=== PATIENT | male | born 1970 | race Two or more races ===

== ENCOUNTER → 2019-08-22 | Outpatient (CLI) | payer OTHER ==
[~2019-08-22] MED LIST: IRBE1TAB13 PO; NORT10CA PO
[2019-08-22 08:46] LABS: ALANINE AMINOTRANSFERASE 30 U/L (12-78); ALBUMIN 3.7 g/dL (3.4-5.0); ANION GAP 6 mmol/L (5-15); CALCIUM 8.6 mg/dL (8.5-10.1); CHLORIDE 105 mmol/L (98-107); CREATININE 1.35 mg/dL (0.7-1.3)
[2019-08-22 08:48] LABS: ALKALINE PHOSPHATASE 117 U/L (45-117); BILIRUBIN,TOTAL 1.2 mg/dL (0.2-1.0); TOTAL PROTEIN 8.3 g/dL (6.4-8.2)
== END | disposition home or self-care (01) ==
LOC: STAR 07:43
PROVIDERS: ATTEND Internal Medicine
DX: Z01.818 Encounter for other preprocedural examination (principal)
CPT/HCPCS: 36415; 80053

== ENCOUNTER 2019-08-26 07:25 | Day surgery (SDC) | payer OTHER ==
[~2019-08-26] VITALS: Ht 170.2 cm; Wt 106.0 kg
[2019-08-26] MEDS ORDERED: CHLORHEXIDINE 15 ML UDC MM STA (07:38)
[2019-08-26] MEDS ORDERED: CHLORHEXIDINE 15 ML UDC ONE (07:40)
[2019-08-26 07:53] VITALS: BP 148/86
[2019-08-26] MEDS ORDERED: LACTATED RINGERS 1,000 ML IV SCH (09:00)
[2019-08-26] MEDS ORDERED: PROPOFOL 10 MG/ML, 50ML ONE (09:15)
[2019-08-26] MEDS ORDERED: ACETAMINOPHEN 325 MG TABLET PO PRN (09:30)
[2019-08-26] MEDS ORDERED: FENTANYL PF 100 MCG/2ML IV PRN (09:30)
[2019-08-26] MEDS ORDERED: ONDANSETRON 2MG/ML, 2ML IVPush PRN (09:30)
[2019-08-26] MEDS ORDERED: PROMETHAZINE 25 MG/ML, 1ML IVPush PRN (09:30)
[2019-08-26] MEDS ORDERED: LORazepam 2 MG/ML, 1ML IVPush PRN (09:30)
[2019-08-26] MEDS ORDERED: GLUCAGON 1 MG ONE (10:32)
== END 2019-08-26 11:40 | disposition home or self-care (01) ==
LOC: OUT 07:25
PROVIDERS: ATTEND Internal Medicine
DX: D12.5 Benign neoplasm of sigmoid colon (principal); Z11.59 Encounter for screening for other viral diseases; K57.30 Diverticulosis of large intestine without perforation or abscess without bleeding; I10 Essential (primary) hypertension; M19.90 Unspecified osteoarthritis, unspecified site; E66.9 Obesity, unspecified; Z68.35 Body mass index [BMI] 35.0-35.9, adult; Z79.899 Other long term (current) drug therapy; Z90.49 Acquired absence of other specified parts of digestive tract; Z98.84 Bariatric surgery status; Z98.890 Other specified postprocedural states
CPT/HCPCS: 36415; 45381; 45385; 87635; 88305; A4648; J1610; J2704

== ENCOUNTER 2020-09-08 11:22 | Outpatient (CLI) | payer OTHER | END 2020-09-08 23:59 | disposition home or self-care (01) | LOC: STAR 11:22 | PROVIDERS: ATTEND Internal Medicine | DX: Z02.9 Encounter for administrative examinations, unspecified (principal) ==

== ENCOUNTER 2020-09-14 06:30 | Day surgery (SDC) | payer OTHER ==
[~2020-09-14] VITALS: Ht 170.2 cm; Wt 108.5 kg
[2020-09-14 06:53] VITALS: BP 153/90
[2020-09-14] MEDS ORDERED: CHLORHEXIDINE 15 ML UDC PO ONE (07:00)
[2020-09-14] MEDS ORDERED: LACTATED RINGERS 1,000 ML IV SCH (07:00)
[2020-09-14] MEDS ORDERED: LIDOCAINE-MPF 1%, 2ML INFIL ONE (07:00)
[2020-09-14] MEDS ORDERED: ACETAMINOPHEN 325 MG TABLET PO PRN (08:30)
[2020-09-14] MEDS ORDERED: ONDANSETRON 2MG/ML, 2ML IVPush PRN (08:30)
[2020-09-14] MEDS ORDERED: FENTANYL PF 100 MCG/2ML ONE (08:30)
[2020-09-14] MEDS ORDERED: FENTANYL PF 100 MCG/2ML IV PRN (08:30)
[2020-09-14] MEDS ORDERED: PROPOFOL 50 ML ONE ×2 (08:45→08:47)
== END 2020-09-14 10:25 | disposition home or self-care (01) ==
LOC: OUT 06:30
PROVIDERS: ATTEND Internal Medicine
DX: Z09 Encounter for follow-up examination after completed treatment for conditions other than malignant neoplasm (principal); K57.30 Diverticulosis of large intestine without perforation or abscess without bleeding; K64.8 Other hemorrhoids; M19.90 Unspecified osteoarthritis, unspecified site; I10 Essential (primary) hypertension; E66.9 Obesity, unspecified; Z68.35 Body mass index [BMI] 35.0-35.9, adult; Z79.899 Other long term (current) drug therapy; Z90.49 Acquired absence of other specified parts of digestive tract; Z98.84 Bariatric surgery status
CPT/HCPCS: 45378; J2704; J3010; J7120